=== PATIENT | female | born 1970 ===

== ENCOUNTER 2019-03-06 17:04 | Emergency (ER) | payer MEDICAID, OTHER ==
[2019-03-06] MEDS ORDERED: ACETAMINOPHEN 1,000 MG/100 ML BTL IVPB ONE (17:34)
--- NOTE | 2019-03-06 17:42 | Emergency Department Record ---
History of Present Illness - General Chief Complaint: Headache Migraine Stated Complaint: SHEN/LOST MEMORY Time Seen by Provider: 03/06/19 17:07 Source: Patient, Family Mode of Arrival: Wheelchair Limitations: No limitations - History of Present Illness Initial Comments: The patient is here due to the acute onset of a SHEN about an hour ago. The patient has a LONG hx of TIA's and Migraines and is seen at [facility] for similar issues. Her SHEN's get bad when the weather atmospheric pressure goes up like it is today. The patient had been in her normal state of healthy when she developed the acute onset of the SHEN. The pain is over the L frontal area of her head. She does have mild photophobia and nausea but no vomiting or neck pain. The patient also has been slightly confused with this SHEN which she has had in the past. The patient has been admitted to the hospital in the past with TIA's and also Transient Global Amnesia. Her doctor is in [facility] presently. MD Complaint: Headache, "Migraine" Onset/Timin -: Minutes(s) Onset Description: Sudden Severity: Severe Severity scale (1-10): 10 Quality: Different than previous headaches, Similar to previous headaches Consistency: Constant - Symptoms of Stroke Onset of Symptoms Date: 03/06/19 Onset of Symptoms Time: 16:45 Symptoms of stroke: Unable to Think Clearly - Related Data Home Medications Medication Instructions Recorded Confirmed Last Taken Butalb/Acetaminophen/Caffeine 03/06/19 Unknown [Fioricet] Duloxetine HCl [Cymbalta] 90 mg PO DAILY 03/06/19 03/06/19 Unknown Fexofenadine HCl [Aneta Allergy] 180 mg PO DAILY 03/06/19 03/06/19 Unknown Multivitamin [Multi-Vitamin Daily] 03/06/19 Unknown [place]-3 Fatty Acids [Fish Oil 03/06/19 Unknown Concentrate] Omeprazole Magnesium [Prilosec Otc] 20 mg PO DAILY 03/06/19 03/06/19 Unknown Allergies Allergy/AdvReac Type Severity Reaction Status Date / Time metoclopramide [From Reglan] Allergy HYPERSENSIT Verified 03/06/19 17:21 IVITY Travel Screening - Travel/Exposure Within Last 30 Days Have you traveled within the last 30 days?: No - Travel/Exposure Within Last Year Have you traveled outside the [place] in the last year?: No - Additonal Travel Details Have you been exposed to anyone with a communicable illness?: No - Travel Symptoms Symptom Screening: None Review of Systems Constitutional: Denies: Chills, Fever Eyes: Denies: Eye discharge ENT: Denies: Congestion Respiratory: Denies: Cough, Dyspnea Past Medical History - SOCIAL HISTORY Smoking Status: Never smoker Alcohol Use: None Drug Use: None - RESPIRATORY Hx Respiratory Disorders: No - CARDIOVASCULAR Hx Cardio Disorders: No - NEURO Hx Headaches: Yes (migraines) Hx TIA: Yes (called "mini TIAa" by [facility]) - GI Hx GI Disorders: No - Hx Genitourinary Disorders: No - ENDOCRINE Hx Endocrine Disorders: No - MUSCULOSKELETAL Hx Musculoskeletal Disorders: No - PSYCH Hx Psych Problems: No - HEMATOLOGY/ONCOLOGY Hx Hematology/Oncology Disorders: No Family Medical History Any Significant Family History?: No Physical Exam - General General Appearance: Alert, Cooperative, Moderate distress (due to the SHEN.) - Eye Eye exam: Normal appearance, PERRL, EOMI. negative: Conjunctival injection - ENT Throat exam: Normal inspection. negative: Tonsillar erythema, Tonsillar exudate - Neck Neck exam: Normal inspection, Full ROM. negative: Meningismus (The neck is very supple.), Tenderness - Respiratory Respiratory exam: Normal lung sounds bilaterally. negative: Respiratory distress - Cardiovascular Cardiovascular Exam: Regular rate, Normal rhythm, Normal heart sounds - GI/Abdominal GI/Abdominal exam: Soft, Normal bowel sounds. negative: Tenderness - Extremities Extremities exam: Normal inspection, Full ROM, Normal capillary refill. negative: Tenderness - Back Back exam: Reports: Normal inspection - Neurological Neurological exam: Abnormal gait, Alert. negative: Motor sensory deficit, Normal gait, Oriented X3 (The patient is oriented to name, and age and to her . She is confused as to the day of the week.) Course Vital Signs 03/06/19 17:11 Temperature 98.5 F Pulse Rate 96 H Respiratory 18 Rate Blood Pressure 137/85 Pulse Ox 98 - Reevaluation(s) Reevaluation #1: The patient is doing a lot better at this time. She states the pain is much improved and her memory is getting back to normal. She is smiling and joking with her and now is A and O x 3. 03/06/19 18:35 Reevaluation #2: The patient's pain did return and now she is very uncomfortable again. I did discuss the need for more pain medicine and possible hospital admission. The patient and are reluctant to do this due to the fact she has been having these episodes and has been given the all clear recently by her Neurologist at [facility]. Presently the patient is answering all questions appropriately but is still having the pain. Her head CT is normal and I strongly doubt any intracranial pathology due to the fact she has had a LONG hx of these exact same episodes. I did offer an LP due to the fact with the acute onset of SHEN and a neg Head CT within 6 hours the patient has a 99% chance of ruling out a SAH. The is refusing the LP and is willing to accept the 1% chance of missing a SAH. He understands that by NOT picking up a SAH early the patient could have a stroke, become disabled and even . 03/06/19 19:09 Reevaluation #3: The patient presently is receiving more pain medicine and is presently doing a little better. I did discuss the case with Dr. Shay and she will monitor the patient further and assume her care. She may need to be transferred to [facility] if she does not clear and the patient and are aware of this. 03/06/19 19:19 Medical Decision Making - Data Complexity MDM Data: Labs Ordered and/or Reviewed, X-Ray Ordered and/or Reviewed - Lab Data Result diagrams: 03/06/19 17:55 03/06/19 17:55 - Radiology Data Radiology results: Report reviewed (Head CT: Neg per Rad.) Disposition Forms: Patient Portal Access Quality - Quality Measures Quality Measures: N/A - Blood Pressure Screening View Details: Yes Does Patient Have Any of the Following: No Blood Pressure Classification: Pre-Hypertensive BP Reading Systolic Measurement: 137 Diastolic Measurement: 85 Screening for High Blood Pressure: < Pre-Hypertensive BP, F/U Documented > [G8950] Pre-Hypertensive Follow-up Interventions: Referral to alternative/primary care provider.
[2019-03-06] MEDS ORDERED: 0.9 % SODIUM CHLORIDE 1,000 ML BAG IV ONE (17:43)
[2019-03-06 18:09] LABS: ABSOLUTE NEUTROPHIL COUNT 5.43; BASO % 0.9 % (0-6); EOS % 2.2 % (0-6); GRAN % 59.2 % (47-80); HEMATOCRIT 39.2 % (35.0-47.0); HEMOGLOBIN 12.9 gm/dl (11.6-16.0); LYMPH % 32.5 % (16-45); MEAN CELL VOLUME 87.5 fl (81-97); MEAN CORPUSCULAR HEMOGLOBIN 28.8 pg (27-33); MEAN CORPUSCULAR HGB CONC 32.9 g/dl (32-36); MEAN PLATELET VOLUME 10.1 fl (7.4-10.4); MONO % 5.2 % (0-9); PLATELET COUNT 446 K/uL (130-400); RED BLOOD COUNT 4.48 M/uL (3.80-5.40); RED CELL DISTRIBUTION WIDTH 14.1 % (11.5-14.5); WHITE BLOOD COUNT W/O DIFF 9.2 K/uL (4.2-12.2)
[2019-03-06 18:22] LABS: BLOOD UREA NITROGEN 11 mg/dL (6-20); CREATININE 0.6 mg/dL (0.5-0.9); EST GLOMERULAR FILTRATION RATE > 60 mL/min
[2019-03-06 18:23] LABS: TOTAL PROTEIN 7.5 g/dL (6.6-8.7)
[2019-03-06 18:25] LABS: GLUCOSE,RANDOM 85 mg/dL (74-109)
[2019-03-06 18:28] LABS: ALB/GLOB RATIO 1.7 (1.1-1.8); ALBUMIN 4.7 g/dL (4.0-5.0); ALKALINE PHOSPHATASE 72 U/L (35-104); ALT/SGPT 7 U/L (<33); AST/SGOT 16 U/L (10.0-35.0)
[2019-03-06] MEDS ORDERED: KETOROLAC 30 MG/ML VIAL IVP ONE (18:32)
[2019-03-06] MEDS ORDERED: HYDROMORPHONE HCL 2 MG/ML VIAL IVP ONE (19:06)
[2019-03-06] MEDS ORDERED: ONDANSETRON HCL IV 4 MG/2 ML VIAL IVP ONE (19:06)
--- NOTE | 2019-03-06 19:51 | Emergency Department Record ---
History of Present Illness - General Chief Complaint: Headache Migraine Stated Complaint: SHEN/LOST MEMORY Time Seen by Provider: 03/06/19 17:07 Mode of Arrival: Wheelchair Limitations: No limitations - History of Present Illness Onset/Timin -: Minutes(s) Onset Description: Sudden Severity: Severe Severity scale (1-10): 10 Quality: Different than previous headaches, Similar to previous headaches Consistency: Constant - Symptoms of Stroke Onset of Symptoms Date: 03/06/19 Onset of Symptoms Time: 16:45 Symptoms of stroke: Unable to Think Clearly - Related Data Home Medications Medication Instructions Recorded Confirmed Last Taken Butalb/Acetaminophen/Caffeine 03/06/19 Unknown [Fioricet] Duloxetine HCl [Cymbalta] 90 mg PO DAILY 03/06/19 03/06/19 Unknown Fexofenadine HCl [Aneta Allergy] 180 mg PO DAILY 03/06/19 03/06/19 Unknown Multivitamin [Multi-Vitamin Daily] 03/06/19 Unknown [place]-3 Fatty Acids [Fish Oil 03/06/19 Unknown Concentrate] Omeprazole Magnesium [Prilosec Otc] 20 mg PO DAILY 03/06/19 03/06/19 Unknown Allergies Allergy/AdvReac Type Severity Reaction Status Date / Time metoclopramide [From Reglan] Allergy HYPERSENSIT Verified 03/06/19 17:21 IVITY Travel Screening - Travel/Exposure Within Last 30 Days Have you traveled within the last 30 days?: No - Travel/Exposure Within Last Year Have you traveled outside the [place] in the last year?: No - Additonal Travel Details Have you been exposed to anyone with a communicable illness?: No - Travel Symptoms Symptom Screening: None Review of Systems Constitutional: Denies: Chills, Fever Eyes: Denies: Eye discharge ENT: Denies: Congestion Respiratory: Denies: Cough, Dyspnea Past Medical History - SOCIAL HISTORY Smoking Status: Never smoker Alcohol Use: None Drug Use: None - RESPIRATORY Hx Respiratory Disorders: No - CARDIOVASCULAR Hx Cardio Disorders: No - NEURO Hx Headaches: Yes (migraines) Hx TIA: Yes (called "mini TIAa" by [facility]) - GI Hx GI Disorders: No - Hx Genitourinary Disorders: No - ENDOCRINE Hx Endocrine Disorders: No - MUSCULOSKELETAL Hx Musculoskeletal Disorders: No - PSYCH Hx Psych Problems: No - HEMATOLOGY/ONCOLOGY Hx Hematology/Oncology Disorders: No Family Medical History Any Significant Family History?: No Physical Exam - General Limitations: No limitations - Neurological Neurological exam: Alert, Normal gait, Oriented X3 (The patient is answering all questions appropriately.), Reflexes normal. negative: Abnormal gait, Altered, Motor sensory deficit - Psychiatric Psychiatric exam: negative: Anxious Course Vital Signs 03/06/19 03/06/19 17:11 19:24 Temperature 98.5 F Pulse Rate 96 H Pulse Rate [ 84 Pulse Ox Probe] Respiratory 18 18 Rate Blood Pressure 137/85 Blood Pressure 119/78 [Right Arm] Pulse Ox 98 98 - Reevaluation(s) Reevaluation #1: The patient was never turned over to Dr. Shay and I did continue to take care of the patient. She is doing better at this time and is up walking well and answering all questions normally. I did discuss the issues with the patient and and due to the confusing nature of her symptoms and issues I feel that I have to recommend hospital admission. She would need to be transferred to [facility] where her neurologist is located but the patient and are refusing. I also did recommend an LP again but they are refusing that also. They both understand the risks of leaving are that she could go home and have a stroke, SAH, become disabled and . The patient has received some narcotic pain medicine but I do feel she has proper decision making capacity and her does agree. She is to see her Neurologist GEOVANNA and always can return to the ER for any worsening symptoms. 03/06/19 19:47 Medical Decision Making - Lab Data Result diagrams: 03/06/19 17:55 03/06/19 17:55 Lab Results 03/06/19 03/06/19 Range/Units 17:55 17:55 WBC 9.2 (4.2-12.2) K/uL RBC 4.48 (3.80-5.40) M/uL Hgb 12.9 (11.6-16.0) gm/dl Hct 39.2 (35.0-47.0) % MCV 87.5 (81-97) fl MCH 28.8 (27-33) pg MCHC 32.9 (32-36) g/dl RDW 14.1 (11.5-14.5) % Plt Count 446 H (130-400) K/uL MPV 10.1 (7.4-10.4) fl Gran % 59.2 (47-80) % Lymphocytes % 32.5 (16-45) % Monocytes % 5.2 (0-9) % Eosinophils % 2.2 (0-6) % Basophils % 0.9 (0-6) % Absolute Neutrophils 5.43 Sodium 140 (136-145) mmol/L Potassium 3.9 (3.4-4.5) mmol/L Chloride 103 (98-107) mmol/L Carbon Dioxide 24.0 (22-29) mmol/L Anion Gap 13.0 (7-16) BUN 11 (6-20) mg/dL Creatinine 0.6 (0.5-0.9) mg/dL Estimated GFR > 60 mL/min Random Glucose 85 (74-109) mg/dL Calcium 9.5 (8.6-10.0) mg/dL Total Bilirubin 0.20 (0.2-1.0) mg/dL AST 16 (10.0-35.0) U/L ALT 7 (<33) U/L Alkaline Phosphatase 72 (35-104) U/L Total Protein 7.5 (6.6-8.7) g/dL Albumin 4.7 (4.0-5.0) g/dL Globulin 2.8 (1.4-4.8) gm/dL Albumin/Globulin Ratio 1.7 (1.1-1.8) Disposition Disposition: Discharge Clinical Impression: Migraine Qualifiers: Migraine type: unspecified Status migrainosus presence: without status migrainosus Intractability: not intractable Qualified Code(s): G43.909 - Migrai ne, unspecified, not intractable, without status migrainosus Disposition: Against Medical Advice Condition: (2) Stable Instructions: Migraine Headache (ED) Additional Instructions: Please continue your regular medicines and please see your Neurologist GEOVANNA. Return to the ER for any worsening symptoms. Forms: Patient Portal Access Time of Disposition: 19:51 Quality - Quality Measures Quality Measures: Headache (All Ages) - Headache: Neuroimaging Quality Measure: Measure #419: Overuse of Neuroimaging ICD10 Codes Entered: Yes View Detail: Yes Neurological Exam: Patient did NOT have a normal neurological exam. Headache: Use of Neuroimaging: Patient Exclusion, Abnormal Neuro Exam - Blood Pressure Screening View Details: Yes Does Patient Have Any of the Following: No Blood Pressure Classification: Pre-Hypertensive BP Reading Systolic Measurement: 137 Diastolic Measurement: 85 Screening for High Blood Pressure: < Pre-Hypertensive BP, F/U Documented > [G8950] Pre-Hypertensive Follow-up Interventions: Referral to alternative/primary care provider.
--- NOTE | 2019-03-09 14:01 | CT SCAN REPORT ---
EXAM: EMERGENCY HEAD CT HISTORY: HEADACHE. TECHNIQUE: Axial CT scan of the head was performed without IV contrast. Comparison: None. FINDINGS: No definite acute intracranial hemorrhage identified. No focal mass effect or midline shift evident. No definite acute infarct or intracranial mass lesion evident. The paranasal sinuses and mastoids all appear essentially clear. No depressed calvarial fracture evident. The etiology of the patient's headache not clear from this study. If neurologic symptoms persist, follow-up brain MRI may be useful for further evaluation if not contraindicated. IMPRESSION: EMERGENCY NONCONTRAST HEAD CT APPEARS NEGATIVE WITH NO DEFINITE ACUTE INTRACRANIAL HEMORRHAGE OR FOCAL MASS EFFECT IDENTIFIED. JOB NUMBER: [id number] MTDD
== END 2019-03-06 19:58 | disposition left against medical advice (07) ==
LOC: ER 17:04
DX: G43.909 Migraine, unspecified, not intractable, without status migrainosus (principal); R41.3 Other amnesia; R11.0 Nausea; H53.149 Visual discomfort, unspecified; Z86.73 Personal history of transient ischemic attack (TIA), and cerebral infarction without residual deficits
CPT/HCPCS: 70450; 80053; 85025; 96361; 96365; 96375; 99284; J1885; J2405; J7030